=== PATIENT | female | born 1985 | race Caucasian/White ===

== ENCOUNTER 2017-07-04 14:04 | Emergency (ER) | payer MEDICAID ==
[2017-07-04 15:08] VITALS: BP 157/92
--- NOTE | 2017-07-04 15:22 | EDM.PDOC ---
ED HPI GENERAL MEDICAL PROBLEM - General Chief Complaint: Lower Extremity Injury/Pain Stated Complaint: HAD CEMENT BLOCK FALL ON FOOT Time Seen by Provider: 07/04/17 15:16 Source of Information: Reports: Patient History Limitations: Reports: No Limitations - History of Present Illness INITIAL COMMENTS - FREE TEXT/NARRATIVE: pt had a cement block fall on her left foot yesterday. She did develop swelling on the lateral aspect of the foot. . There is slight dicoloration present. Onset: Other ( this occured yesterday. ) Duration: Hour(s): Location: Reports: Lower Extremity, Left Associated Symptoms: Reports: No Other Symptoms - Related Data Allergies Allergy/AdvReac Type Severity Reaction Status Date / Time No Known Allergies Allergy Verified 07/21/16 18:52 Home Meds: Home Meds Naproxen Sodium 220 mg PO DAILY PRN 07/21/16 [History] Amphetamine/Dextroamphetamine [Adderall] 5 mg PO BID 07/04/17 [History] traZODone 50 mg PO DAILY 07/04/17 [History] Past Medical History HEENT History: Reports: None Cardiovascular History: Reports: Angina, Arrhythmia, Hypertension Respiratory History: Reports: Asthma, Bronchitis, Recurrent, Pneumonia, Recurrent Gastrointestinal History: Reports: None Genitourinary History: Reports: Pyelonephritis, Renal Calculus, UTI, Recurrent 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: Musculoskeletal History: Reports: Back Pain, Chronic, Neck Pain, Chronic Other Musculoskeletal History: spinal tap Neurological History: Reports: Migraines, Seizure Psychiatric History: Reports: Anxiety, Depression, PTSD, Suicide Attempt Hematologic History: Reports: Blood Transfusion(s), Other (See Below) Other Hematologic History: Antibody M Immunologic History: Reports: Other (See Below) Other Immunologic History: pt was exposed to HIV Dermatologic History: Reports: Psoriasis - Infectious Disease History Infectious Disease History: Reports: Chicken Pox - Past Surgical History HEENT Surgical History: Reports: Other (See Below) Cardiovascular Surgical History: Reports: None GI Surgical History: Reports: Colon Female Surgical History: Reports: Other (See Below) Neurological Surgical History: Reports: Other (See Below) Social & Family History - Tobacco Use Smoking Status *Q: Former Smoker Years of Tobacco use: 6 Packs/Tins Daily: 0.2 Used Tobacco, but Quit: Yes Month Tobacco Last Used: 1 Second Hand Smoke Exposure: No - Caffeine Use Caffeine Use: Reports: Soda Other Caffeine Use: 2 cups coffee, 1 mountain dew a day - Recreational Drug Use Recreational Drug Use: No Review of Systems - Review of Systems Review Of Systems: See Below Constitutional: Reports: No Symptoms Eyes: Reports: No Symptoms Ears: Reports: No Symptoms Nose: Reports: No Symptoms Mouth/Throat: Reports: No Symptoms Respiratory: Reports: No Symptoms Cardiovascular: Reports: No Symptoms GI/Abdominal: Reports: No Symptoms Genitourinary: Reports: No Symptoms Musculoskeletal: Reports: Foot Pain Skin: Reports: No Symptoms ED EXAM, GENERAL - Physical Exam Exam: See Below Free Text/Narrative:: pt had a cement block drop on her left foot on the lateral aspect of th left foot. Exam Limited By: No Limitations General Appearance: Alert, Anxious Ears: Normal External Exam Extremities: Other ( left foot is swollen mildly and discolored. ) Neurological: Alert, Oriented, Normal Cognition Psychiatric: Normal Affect Course - Vital Signs Last Recorded V/S: Last Vital Signs Temp 36.1 C 07/04/17 15:08 Pulse 93 07/04/17 15:08 Resp 16 07/04/17 15:08 BP 157/92 H 07/04/17 15:08 Pulse Ox 96 07/04/17 15:08 - Re-Assessments/Exams Free Text/Narrative Re-Assessment/Exam: 07/09/17 07:35 xray of the foot was obtained and there was no fractures present. Departure - Departure Time of Disposition: 15:41 Disposition: Home, Self-Care 01 Condition: Fair Clinical Impression: Contusion of left foot - Discharge Information Instructions: Foot Contusion, [id number] Referrals: PCP,None [Primary Care Provider] - Forms: ED Department Discharge Care Plan Goals: cool pack to area today, starting tomorrow soak in warm water, motrin 600mg td for discomfort as needed.
--- NOTE | 2017-07-05 09:19 | CR ---
Foot Comp Min 3V Lt HISTORY: Pain COMPARISON: None. Findings: No fracture or dislocation. No bony destructive process.
== END 2017-07-04 15:46 | disposition home or self-care (01) ==
LOC: JP.ED 14:04
DX: S90.32XA Contusion of left foot, initial encounter (principal); I10 Essential (primary) hypertension; J45.909 Unspecified asthma, uncomplicated; Z87.440 Personal history of urinary (tract) infections; F43.10 Post-traumatic stress disorder, unspecified; G43.909 Migraine, unspecified, not intractable, without status migrainosus; Z87.891 Personal history of nicotine dependence; Z79.899 Other long term (current) drug therapy; Z98.890 Other specified postprocedural states; W20.8XXA Other cause of strike by thrown, projected or falling object, initial encounter
CPT/HCPCS: 73630-26-LT; 73630-LT; 99284

== ENCOUNTER 2017-10-04 11:08 | Emergency (ER) | payer MEDICAID ==
[2017-10-04 11:21] VITALS: BP 129/89
--- NOTE | 2017-10-04 11:42 | EDM.PDOC ---
ED HPI GENERAL MEDICAL PROBLEM - General Chief Complaint: Respiratory Problem Stated Complaint: TROUBLE BREATHING Time Seen by Provider: 10/04/17 11:30 Source of Information: Reports: Patient History Limitations: Reports: No Limitations - History of Present Illness INITIAL COMMENTS - FREE TEXT/NARRATIVE: 32 yo female presents with onset yesterday of congestion, cough, rhinorrhea, sore throat, and body aches. Not sure about fever, did take acetaminophen this morning. Has an appt for early afternoon today in the clinic regarding her sx' s. Did not have a flu shot. Onset Date: 10/03/17 Duration: Hour(s):, Constant Location: Reports: Head, Face, Neck, Chest Quality: Reports: Ache Severity: Moderate Improves with: Reports: Medication Worsens with: Reports: Other (swallowing, cough) Context: Reports: Other (No flu shot) Associated Symptoms: Reports: Cough, Shortness of Breath (mild). 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 Throat Pain Score (Numeric/FACES): 4 - Related Data Allergies Allergy/AdvReac Type Severity Reaction Status Date / Time No Known Allergies Allergy Verified 07/21/16 18:52 Home Meds: Home Meds Naproxen Sodium 220 mg PO DAILY PRN 07/21/16 [History] Amphetamine/Dextroamphetamine [Adderall] 5 mg PO BID 07/04/17 [History] traZODone 50 mg PO DAILY 07/04/17 [History] Acetaminophen 10/04/17 [History] Phenylephrine/Acetaminophn/Pnm [Theraflu Cold-Sore Throat] 10/04/17 [History] Venlafaxine [Effexor] 112.5 mg PO DAILY 10/04/17 [History] Past Medical History HEENT History: Reports: None Cardiovascular History: Reports: Angina, Arrhythmia, Hypertension Respiratory History: Reports: Asthma, Bronchitis, Recurrent, Pneumonia, Recurrent Gastrointestinal History: Reports: None Genitourinary History: Reports: Pyelonephritis, Renal Calculus, UTI, Recurrent 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: Musculoskeletal History: Reports: Back Pain, Chronic, Neck Pain, Chronic Other Musculoskeletal History: spinal tap Neurological History: Reports: Migraines, Seizure Psychiatric History: Reports: Anxiety, Depression, PTSD, Suicide Attempt Hematologic History: Reports: Blood Transfusion(s), Other (See Below) Other Hematologic History: Antibody M Immunologic History: Reports: Other (See Below) Other Immunologic History: pt was exposed to HIV Dermatologic History: Reports: Psoriasis - Infectious Disease History Infectious Disease History: Reports: Chicken Pox - Past Surgical History HEENT Surgical History: Reports: Other (See Below) Cardiovascular Surgical History: Reports: None GI Surgical History: Reports: Colon Female Surgical History: Reports: Other (See Below) Neurological Surgical History: Reports: Other (See Below) Social & Family History - Tobacco Use Smoking Status *Q: Former Smoker Years of Tobacco use: 15 Packs/Tins Daily: 0.2 Used Tobacco, but Quit: Yes Month Tobacco Last Used: oct Second Hand Smoke Exposure: No - Caffeine Use Caffeine Use: Reports: Coffee, Energy Drinks, Soda Other Caffeine Use: 2 cups coffee, 1 mountain dew a day - Recreational Drug Use Recreational Drug Use: No ED ROS GENERAL - Review of Systems Review Of Systems: See Below Constitutional: Reports: Fatigue. Denies: Fever, Chills, Weakness, Diaphoresis HEENT: Reports: Ear Pain (when she blows her nose only), Hearing Loss, Rhinitis , Sinus Problem, Throat Pain. Denies: Eye Discharge, Vertigo Respiratory: Reports: Shortness of Breath, Cough. Denies: Wheezing, Pleuritic Chest Pain, Sputum, Hemoptysis Cardiovascular: Reports: No Symptoms GI/Abdominal: Reports: No Symptoms : Reports: No Symptoms Musculoskeletal: Reports: No Symptoms Skin: Reports: No Symptoms Neurological: Reports: No Symptoms ED EXAM, GENERAL - Physical Exam Exam: See Below Exam Limited By: No Limitations General Appearance: Alert, WD/WN, No Apparent Distress Eye Exam: Bilateral Eye: Conjunctival Injection, Normal Inspection Ears: Normal External Exam, Normal Canal, Hearing Grossly Normal, Other (fluid in ears without erythema) Ear Exam: Bilateral Ear: Canal Normal Nose: Clear Rhinorrhea Throat/Mouth: Normal Inspection, Normal Lips, Normal Oropharynx, Normal Voice, No Airway Compromise Head: Atraumatic, Normocephalic Neck: Normal Inspection, Supple, Non-Tender Respiratory/Chest: No Respiratory Distress, Lungs Clear, Normal Breath Sounds, No Accessory Muscle Use Cardiovascular: Regular Rate, Rhythm, No Edema GI/Abdominal: Normal Bowel Sounds, Soft, Non-Tender, No Distention Back Exam: Normal Inspection. No: CVA Tenderness (R), CVA Tenderness (L) Extremities: Normal Inspection, Normal Range of Motion, Non-Tender, No Pedal Edema Neurological: Alert, Oriented, CN II-XII Intact, Normal Cognition, No Motor/ Sensory Deficits Psychiatric: Normal Affect, Normal Mood Skin Exam: Warm, Dry, Intact, Normal Color, No Rash Lymphatic: No Adenopathy Course - Vital Signs Text/Narrative:: Patient walked out after seen, but before her influenza test could be collected. Last Recorded V/S: Last Vital Signs Temp 37.1 C 10/04/17 11:24 Pulse 108 H 10/04/17 11:24 Resp 18 10/04/17 11:24 BP 129/89 10/04/17 11:24 Pulse Ox 97 10/04/17 11:24 - Orders/Labs/Meds Orders: Active Orders 24 hr Category Date Time Status INFLUENZA A+B AG SCREEN [RM] Stat Lab 10/04/17 11:36 Uncollected Departure - Departure Time of Disposition: 12:16 Disposition: Eloped 07 Condition: Good Clinical Impression: Influenza-like illness - Discharge Information Referrals: Miles Mcknight PA-C [Primary Care Provider] - Forms: ED Department Discharge - My Orders Last 24 Hours: My Active Orders 10/04/17 11:36 INFLUENZA A+B AG SCREEN [RM] Stat - Assessment/Plan Last 24 Hours: My Active Orders 10/04/17 11:36 INFLUENZA A+B AG SCREEN [RM] Stat
== END 2017-10-04 11:45 | disposition left against medical advice (07) ==
LOC: JP.ED 11:08
DX: J11.1 Influenza due to unidentified influenza virus with other respiratory manifestations (principal); F32.9 Major depressive disorder, single episode, unspecified; Z87.891 Personal history of nicotine dependence; Z79.899 Other long term (current) drug therapy
CPT/HCPCS: 99283